=== PATIENT | male | born 1995 ===

== ENCOUNTER 2021-03-31 14:53 | Outpatient (CLI) | payer OTHER ==
--- NOTE | 2021-03-31 15:48 | SLEEP CARE CONSULTATION ---
Information from patient questionnaire entered by Cassia Mahajan. I have reviewed and concur with the information entered by Cassia Mahajan. This document represents the service I personally performed and the decisions made by me, Tamara Limon ARNP. History of Present Illness Service Date and Time: 03/31/2021 1453 Reason for Visit: New patient Chief Complaint: reports: Unrefreshed sleep, Snoring, Excessive daytime sleepiness, Observed pauses in breathing, Fatigue Date of Onset: 5 years Usual bedtime: Time it takes to fall asleep: 45 min/1 hr. Sometimes longer Snores at night: Yes Observed to quit breathing while asleep: Yes Sleeps alone due to snoring: No Number of times waking at night: Not sure Reasons for waking at night: reports: Snoring, Gasping for air Toss, Turn, or Twitch while sleeping: Yes Recalls having dreams: Yes (sometimes) Usually gets out of bed at: 0545/0600 Morning headache: Yes ([id number]; once a week, goes away in 1-2 hours) Sleepy or fatigued during the day: Yes Ever fallen asleep while driving: Yes (drowsy driving; has fallen asleep but no accident) Takes day naps: No Dreams during day naps: No Prior sleep studies: No Additional HPI information: I had the pleasure of seeing AUSTIN HUDSON today regarding the possibility of him having a sleep disorder. His current complaints are unrefreshed sleep, excessive daytime sleepiness, observed pauses in breathing, loud snoring and fatigue. He states he doesn't feel like he sleeps and wakes up tired. He snores loudly and his has slept in their guest room occasionally. She has told him that he will stop breathing and gasp in his sleep. He is tired of being tired all the time. He talks in his sleep and has acted out dreams occasionally. He has a grandmother with treated sleep apnea and he thinks his father has it but has never been tested. 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 Patient is and lives in [place]. Have you smoked in the past 12 months: No Alcohol use: Yes Alcohol amount and frequency: 1/2 drinks socially Caffeine use: Yes Caffeine amount and frequency: 1 cup coffee every day or 80 mg kombucha Family History Family history of sleep disordered breathing: Yes Family Hx Sleep Apnea: Father: Snoring, Sleep apnea - Untreated, Grandparent: Sleep apnea - Treated (grandmother) Allergies and Home Medications Drug allergies reviewed: Yes (penicillin) Home medication list reviewed: Yes Allergy and home medication list: Advil, prn Review of Systems Weight gain over past 5 years: 20 Weight loss over past 5 years: 14 Cardiovascular: denies: high blood pressure Gastrointestinal: reports: heartburn Neurological: reports: headaches Psychiatric: denies: anxiety, depression Ear/Nose/Throat: reports: wisdom teeth removed. denies: sinus problems, injury to nose, tonsillectomy Endocrine: reports: sluggishness (tired). denies: thyroid disease Musculoskeletal: reports: joint pain (stiffness) Immunologic: denies: allergies to food or environment Physical Exam Blood Pressure: 122/79 Cuff size: wrist Heart Rate: 82 O2 Saturation: 98 Height: 5 ft 10 in Weight: 256 lb Body Mass Index: 36.7 BMI Classification: Obese Neck circumference: 17.45 (inches) Mouth and throat: narrow oropharynx Soft palate: long Hard palate: normal Uvula: normal Uvula visualization: 50% Mallampati Class II Tongue: normal in size Tonsils: 1+ Neck: normal w/o lymphadenopathy or thyromegaly Heart: regular rate and rhythm Lungs: clear bilaterally Impression and Plan 1. Suspected Obstructive Sleep Apnea-Hypopnea Syndrome, as loud and irregular snoring, observed cessation of breath while asleep, gasping or choking in sleep, morning headache, unrefreshed sleep, cognitive impairment, and excessive daytime sleepiness. Narrow oropharynx and obesity are common predisposing factors for obstructive sleep apnea-hypopnea syndrome. I recommend proceeding to polysomnography to confirm the diagnosis and to assess severity. If the patient has significant sleep disordered breathing, a manual CPAP titration study will also be performed to find the optimal treatment pressure. I informed the patient of what the sleep studies involve and after some discussion, obtained agreement to proceed. The pathophysiology of obstructive sleep apnea-hypopnea syndrome was discussed with the patient and health risks of cardiovascular and cerebrovascular disease if not treated. [facility] brochure for obstructive sleep apnea-hypopnea syndrome given and reviewed. Risks of drowsy driving discussed in detail and patient advised to avoid long distance driving and to heat treat puller at the first sign of drowsiness. Patient agreed to plan. * Schedule polysomnography +- manual CPAP titration study and return in 1-2 weeks after the study to discuss result and initiate therapy. * Avoid long distance driving or driving when feeling sleepy. * Avoid alcohol, sedative and muscle relaxant around bedtime. * Attempt to lose weight. * Review instructions provided by trained office staff on how to prepare for the sleep study. * Return for follow-up after sleep study completed. Counseling Topics: Weight loss health impact Visit Type: In Office Time Spent with Patient (minutes): 32 Provider Statement: I spent 100% of the Face to Face Visit with the patient with greater than 50% spent counseling the patient and coordination of care.
[2021-03-31 15:49] VITALS: BP 122/79
== END 2021-03-31 14:54 | disposition home or self-care (01) ==
LOC: SC 14:53
PROVIDERS: ATTEND Nurse Practitioner Family
DX: R06.83 Snoring (principal); R06.81 Apnea, not elsewhere classified; G47.8 Other sleep disorders; R51.9 Headache, unspecified; R41.89 Other symptoms and signs involving cognitive functions and awareness; G47.10 Hypersomnia, unspecified; E66.9 Obesity, unspecified; Z68.36 Body mass index [BMI] 36.0-36.9, adult
CPT/HCPCS: 99203; 99212

== ENCOUNTER 2021-04-16 11:51 | Outpatient (CLI) | payer OTHER | END 2021-04-16 11:52 | disposition home or self-care (01) | LOC: SC 11:51 | PROVIDERS: ATTEND Nurse Practitioner Family | DX: G47.33 Obstructive sleep apnea (adult) (pediatric) (principal); R09.02 Hypoxemia | CPT/HCPCS: 95806 ==

== ENCOUNTER 2021-05-06 15:39 | Outpatient (CLI) | payer OTHER ==
[2021-05-06 16:17] VITALS: BP 116/86
--- NOTE | 2021-05-06 16:17 | SLEEP CARE CONSULTATION ---
Information from patient questionnaire entered by Irma Chao MA. I have reviewed and concur with the information entered by Irma Chao MA. This document represents the service I personally performed and the decisions made by , Tamara Limon ARNP. History of Present Illness Service Date and Time: 05/06/2021 1539 Initial [place] Sleepiness Scale score: 11 (in 2020) Current [place] Sleepiness Scale score: 17 (in 2020) Additional HPI information: AUSTIN HUDSON returns for follow up and results of the recently performed home sleep study. I explained the pathophysiology behind obstructive sleep apnea. We then spent quite a bit of time discussing different treatment options. For mild obstructive sleep apnea, surgery and oral appliance are alternatives to nasal CPAP therapy but in moderate or severe cases, nasal CPAP is the most effective and reliable treatment. Because apnea is primarily in supine position, then positional management therapy could be effective. Methods discussed such as positioning with pillows, using a T-shirt with tennis balls in the back, and shown commercial products that have a pillow format on back to prevent supine sleep. I reviewed the impact of weight changes on sleep apnea and strongly recommended losing weight. After some discussion, the patient opted to go with the nasal CPAP therapy. Nasal autoCPAP set at 4-15 cmH20 will be ordered with rationale explained. A manual titration study will be ordered if unable to find optimal pressure with office adjustments. I explained how CPAP machine works with sample devices Respironics Dreamstation and ResInfiKno [id number] and what to expect when using the machine. Using CPAP every night in order to get used to it was emphasized. Patient advised to put CPAP mask on before getting into bed so as not to fall asleep without CPAP. To assist acclimation to CPAP use, it could also be used for a short time during day while reading or watching TV. The patient was instructed to call the CPAP supplier to discuss any mechanical problem that may occur. If the mask given is uncomfortable or is difficult to keep on through the night even with adjustment, contact the CPAP supplier as many will replace with another mask style if no tified before 30 days. If snoring or perceives is not getting enough air or too much air from the machine, notify this office. AAS patient education PAP tips reviewed and given to patient. Patient counseled not drink alcohol less than 4 hours before bedtime as it can increase snoring and apnea. Patient was cautioned about risks of drowsy driving until sleepiness symptoms resolve. Sleep Study - Results Type of Sleep Study: Polysomnography Prior sleep studies: Yes Year and Where: 03/2021 Polysomnography/Home Sleep Study results: Physician Impression: The quality of the study is good. The length of the study is adequate (> 240 minutes). Please also see the tabulated and graphic data. 1. Obstructive Sleep Apnea-Hypopnea (ICD-10 G47.33), mild, with an AHI of 7.6/hr and malia SaO2 of 87%. During the study, the patient had 14 apneas (14 obstructive, 0 central, 0 mixed) and 41 hypopneas. The longest episode lasted 73.5 seconds. The patient only slept supine during this study (supine AHI was 7.6 and non-supine, 0.00). 2. Hypoxemia (ICD-10 R09.02), minimal, with the lowest oxygen saturation of 87 % and 2.0 minutes with SaO2 under 90%. Baseline oxygen saturation was normal (Average oxygen saturation was 94%). Allergies and Home Medications Home medication list reviewed: Yes (no changes) Review of Systems Review of systems same as previous: Yes (no changes) Physical Exam Vital signs obtained and entered by: Zhanna KELLER Blood Pressure: 116/86 (left) Cuff size: wrist Heart Rate: 74 O2 Saturation: 98 (with mask) Height: 5 ft 10 in Weight: 260 lb (with boots) Body Mass Index: 37.3 BMI Classification: Obese Impression and Plan 1. Obstructive Sleep Apnea-Hypopnea Syndrome, mild, with lowest oxygen saturation of 87%. Obviously this is the cause of the patients symptoms of unrefreshed sleep, and excessive daytime sleepiness. Positive pressure therapy could benefit benefit his overall health and reduce risks for cardiovascular and cerebrovascular adverse events. As mentioned above, the patient will be started on nasal autoCPAP therapy with pressure set at 4-15 cmH2O. A manual titration study will be completed if unable to find optimal treatment pressure with office adjustments. Compliance guidelines also reviewed. A copy of compliance guidelines will be given for reference at check out. Because the apnea is more severe supine, I instructed to avoid sleeping supine using pillow positioning un til able to start CPAP use. 2. Hypoxemia, minimal, with the lowest oxygen saturation of 87 % and 2.0 minutes with SaO2 under 90%. His baseline oxygen saturation was normal with an average oxygen saturation of 94%. * Nasal auto CPAP therapy, pressure at 4-15 cm H2O. * Attempt to lose weight. * Avoid alcohol consumption near bedtime. * Avoid supine sleep until using CPAP. * The patient is again cautioned about driving until sleepiness completely resolves. * Return one month after CPAP obtained. I will assess response to therapy and compliance at that time. Counseling Topics: Weight loss health impact Visit Type: In Office Time Spent with Patient (minutes): 20 Provider Statement: I spent 100% of the Face to Face Visit with the patient with greater than 50% spent counseling the patient and coordination of care.
== END 2021-05-06 15:40 | disposition home or self-care (01) ==
LOC: SC 15:39
PROVIDERS: ATTEND Nurse Practitioner Family
DX: G47.33 Obstructive sleep apnea (adult) (pediatric) (principal); E66.9 Obesity, unspecified; Z68.37 Body mass index [BMI] 37.0-37.9, adult
CPT/HCPCS: 99212; 99213

== ENCOUNTER 2021-08-03 10:17 | Outpatient (CLI) | payer OTHER ==
[2021-08-03 11:20] VITALS: BP 139/93
--- NOTE | 2021-08-03 11:20 | SLEEP CARE CONSULTATION ---
Information from patient questionnaire entered by Irma Chao MA. I have reviewed and concur with the information entered by Irma Chao MA. This document represents the service I personally performed and the decisions made by , Tamara Limon ARNP. 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 Sleep Study - Results Type of Sleep Study: Polysomnography Prior sleep studies: Yes Year and Where: 03/2021 CPAP Compliance Data - Data Reviewed with Patient Average duration of nightly device use: 3 hours 10 minutes Compliance rate %: 23 Current pressure setting (cmH2O): 4-16 (median 5.5, avg 8.0, max 9.3) Average residual AHI: 0.4 Central apnea: 0.0 Obstructive apnea: 0.2 Subjective Missed days of use due to: reports: illness Patient concerns: reports: mask discomfort, nasal congestion, dry mouth, nose, throat, other ([place]). denies: aerophagia, air blowing in eyes, mask leak noise, condensation in mask/hose, epistaxis Observed to snore while using device: No Current pressure setting perceived as: comfortable On therapy, patient: reports: sleeping better, awakening more refreshed, being more awake and alert during the day, more rested overall. denies: drowsiness while driving Initial [place] Sleepiness Scale score: 11 (in 2020) Current [place] Sleepiness Scale score: 14 (2021) Allergies and Home Medications Known drug allergies: Yes ([facility], ) Drug allergies reviewed: Yes Home medication list reviewed: Yes Physical Exam Vital signs obtained and entered by: Hilario CHAO CMA [place] Blood Pressure: 139/93 (RIGHT, 80 PULSE) Cuff size: wrist Heart Rate: 81 O2 Saturation: 97 (WITH PAPER MASK) Height: 5 ft 10 in Weight: 260 lb (UNIFORM AND BOOTS) Body Mass Index: 37.3 BMI Classification: Obese Impression and Plan 1. Obstructive Sleep Apnea-Hypopnea Syndrome, mild, with poor treatment compliance and excellent apnea control. On CPAP therapy, the patient has better sleep quality and is more rested overall. He states he will take the mask off while asleep. He wants to wear the mask because he notices the difference in how he feels when he uses the CPAP. He is using a full face mask that goes over the nose and mouth. He states that he thinks he needs a bigger mask because the mask will put pressure on his nose and he feels he cannot breathe through his nose at all. He thinks he may sleep with his mouth open causing some oral dryness and that is why he went with the full face mask. I think he may benefit from switching to a Nate Skimblwear full face mask and had him fitted in the office by the mechanical design technician (Mikey). He felt it was comfortable and he hopes it will help him leave the mask on his face. Patient has been having some problems with being able to get more supplies. 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 He was also told he should get a battery pack for this deployment. I will write for the battery pack and 6 months of supplies for the deployment and have my discharge tobacco checkout clerk fax to his DME to help him get the supplies he needs. I am also adjust his pressure to reflect the pressures the patient is using. He was encouraged to replace mask on his face when he finds it off and to use CPAP with any naps. He voiced understanding. Patient's apnea severity and rationale for treatment to reduce apnea, improve sleep quality and reduce cardiovascular and cerebrovascular events was reviewed. Patient was encouraged to lose weight for their overall health and to reduce apneas. * Patient given full face Dreamwear mask to try for patient comfort * Change auto CPAP pressure to 5-8 cmH2O * Battery backup for deployment * 6 month supply of masks for deployment * Notify me if snoring with mask or feeling that the pressure is too much or too little * Attempt to lose weight * Call this office if any problems using CPAP * Return for follow up in 1-2 months, or sooner if concerns arise Mask provided: Yes Counseling Topics: Spare mask, Weight loss health impact Visit Type: In Office Time Spent with Patient (minutes): 23 Provider Statement: I spent 100% of the Face to Face Visit with the patient with greater than 50% spent counseling the patient and coordination of care.
== END 2021-08-03 10:18 | disposition home or self-care (01) ==
LOC: SC 10:17
PROVIDERS: ATTEND Nurse Practitioner Family
DX: G47.33 Obstructive sleep apnea (adult) (pediatric) (principal); E66.9 Obesity, unspecified; Z68.37 Body mass index [BMI] 37.0-37.9, adult
CPT/HCPCS: 99212; 99213

== ENCOUNTER 2021-09-14 14:26 | Outpatient (CLI) | payer OTHER ==
--- NOTE | 2021-09-14 15:04 | SLEEP CARE CONSULTATION ---
Information from patient questionnaire entered by Irma Chao MA. I have reviewed and concur with the information entered by Irma Chao MA. This document represents the service I personally performed and the decisions made by , Tamara Limon ARNP. History of Present Illness Service Date and Time: 09/14/2021 1426 Previous diagnosis: Mild, Obstructive Sleep Apnea-Hypopnea Syndrome AHI: 7.6 Reason for follow up: one month Equipment type: CPAP Equipment obtained from: Other ([facility], getting supplies as needed) Mask style: Full face Mask brand: Resmed Backup mask available: Yes (old mask) Last cushion change: 1 month Prior sleep studies: Yes Year and Where: 03/2021 Type of Sleep Study: Polysomnography HPI additional information: AUSTIN HUDSON was diagnosed to have mild, AHI 7.6, obstructive sleep apnea- hypopnea syndrome and returned today for CPAP therapy one month follow-up. Sleep Study - Results Type of Sleep Study: Polysomnography Prior sleep studies: Yes Year and Where: 03/2021 CPAP Compliance Data - Data Reviewed with Patient Average duration of nightly device use: 5 HOURS 59 MINUTES Compliance rate %: 80 Current pressure setting (cmH2O): 5-8 Average residual AHI: 0.3 Central apnea: .0 Obstructive apnea: .1 Average large leak: 11.2 Subjective Patient concerns: denies: aerophagia, mask discomfort, air blowing in eyes, mask leak noise, condensation in mask/hose, nasal congestion, dry mouth, nose, throat, epistaxis Observed to snore while using device: No Current pressure setting perceived as: comfortable On therapy, patient: reports: sleeping better, awakening more refreshed, being more awake and alert during the day, more rested overall. denies: drowsiness while driving Initial [place] Sleepiness Scale score: 11 (in 2020) Current [place] Sleepiness Scale score: 14 (08/2021) Allergies and Home Medications Known drug allergies: Yes (PN) Drug allergies reviewed: Yes Home medication list reviewed: Yes (no changes) Review of Systems Review of systems same as previous: Yes (no changes) Physical Exam Vital signs obtained and entered by: LULY BRIGGS Blood Pressure: 122/71 (RIGH , PULSE 78, RESP 16, ) Cuff size: wrist Heart Rate: 76 O2 Saturation: 96 (PAPER) Height: 5 ft 10 in Weight: 266 lb Weight change since last visit: 6 lb gain Body Mass Index: 38.1 BMI Classification: Obese Impression and Plan 1. Obstructive Sleep Apnea-Hypopnea Syndrome, mild, with good treatment compliance and excellent apnea control. On CPAP therapy, the patient has better sleep quality and is more rested overall. He has been able to be more comfortable using his CPAP with a change to the full face hybrid mask his nose and over his mouth. He has no issues with dry mouth, mask discomfort, skin irritation, nasal congestion or epistaxis. He is going on appointment for 6 months. I will have him call to set up an appointment when he gets back into the area. Patient's apnea severity and rationale for treatment to reduce apnea, improve sleep quality and reduce cardiovascular and cerebrovascular events was reviewed. 2. Obesity, unspecified. Patient has gained weight. Currently patients BMI is 38.1. Obesity increases the risk of apnea, CPAP pressure requirements and overall health risks especially cardiovascular and diabetes. Thus patient is advised to lose weight. Weight loss can be done with reducing portion size, reducing refined foods and balancing content with vegetables, fruit and whole grain foods. In addition, patient encouraged to get regular exercise. * Continue auto CPAP pressure at 5-8 cmH2O * Notify me if snoring with mask or feeling that the pressure is too much or too little * Attempt to lose weight * Call this office if any problems using CPAP * Return for follow up in 6 months, or sooner if concerns arise Counseling Topics: Spare mask, Weight loss health impact Visit Type: In Office Time Spent with Patient (minutes): 21 Provider Statement: I spent 100% of the Face to Face Visit with the patient with greater than 50% spent counseling the patient and coordination of care.
[2021-09-14 15:05] VITALS: BP 122/71
== END 2021-09-14 14:27 | disposition home or self-care (01) ==
LOC: SC 14:26
PROVIDERS: ATTEND Nurse Practitioner Family
DX: G47.33 Obstructive sleep apnea (adult) (pediatric) (principal); E66.9 Obesity, unspecified; Z68.38 Body mass index [BMI] 38.0-38.9, adult
CPT/HCPCS: 99212; 99213

== ENCOUNTER 2022-06-17 07:59 | Outpatient (CLI) | payer OTHER ==
--- NOTE | 2022-06-17 08:59 | MRI Report ---
PROCEDURE: CERVICAL SPINE WO INDICATIONS: PARESTHESIA TECHNIQUE: Noncontrast sagittal T1 spin echo and T2 fast spin echo, sagittal STIR, foraminal oblique sagittal T2 fast spin echo, and axial gradient echo or T2 fast spin echo through the cervical spine. COMPARISON: None. FINDINGS: Image quality: Excellent. Alignment and Curvature: There is loss of normal cervical lordosis and otherwise normal bony alignme nt. Bone Marrow: Marrow demonstrates normal overall signal. Spinal Cord: Visualized spinal cord has normal size and signal. No cerebellar tonsillar herniation. Paraspinous Soft Tissues: No paravertebral masses. Prevertebral soft tissues are normal in thicknes s. C2-C3: Normal in appearance. C3-C4: Mild facet and uncovertebral hypertrophy bilaterally. Congenital canal stenosis. Mild canal stenosis. Mild bilateral foraminal stenosis. C4-C5: Congenital canal stenosis. Overall moderate canal stenosis. No foraminal stenosis. C5-C6: Congenital canal stenosis. Mild disc desiccation. Minimal diffuse disc bulge. Moderate canal stenosis. No foraminal stenosis. C6-C7: Congenital canal stenosis. Moderate canal stenosis. No foraminal stenosis. C7-T1: Congenital canal stenosis. Mild canal stenosis. No foraminal stenosis. IMPRESSION: 1. 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 2. Multilevel canal stenoses, worst at C4-C5, C5-C6, and C6-C7, where there are moderate canal stenos es. 3. Mild C3-C4 foraminal stenoses bilaterally. Reviewed by: Gertrudis Feldman MD on 06/17/2022 8:58 AM PST Approved by: Gertrudis Feldman MD on 06/17/2022 8:58 AM PST Station ID: [id number]
== END 2022-06-17 08:00 | disposition home or self-care (01) ==
LOC: DI 07:59
DX: M50.322 Other cervical disc degeneration at C5-C6 level (principal); M47.812 Spondylosis without myelopathy or radiculopathy, cervical region; M48.02 Spinal stenosis, cervical region

== ENCOUNTER 2022-07-22 14:56 | Outpatient (CLI) | payer OTHER ==
[2022-07-22 15:59] VITALS: BP 128/80
--- NOTE | 2022-07-22 15:59 | SLEEP CARE CONSULTATION ---
Information from patient questionnaire entered by Kalpana Abreu. I have reviewed and concur with the information entered by Kalpana Abreu. This document represents the service I personally performed and the decisions made by me, Tamara Limon ARNP. History of Present Illness Service Date and Time: 07/22/2022 1456 Previous diagnosis: Mild, Obstructive Sleep Apnea-Hypopnea Syndrome AHI: 7.6 (in 2020) Reason for follow up: other (TEN MONTH F/U; needs supplies) Equipment type: CPAP (RESMED Airsense 11, s/u 06/2021) Equipment obtained from: Other ([facility], getting supplies as needed) Mask style: Full face Mask brand: Respironics ([employer]) Backup mask available: Yes (old mask) Last cushion change: 2 months Prior sleep studies: Yes Year and Where: 03/2021 Type of Sleep Study: Polysomnography HPI additional information: AUSTIN HUDSON was diagnosed to have mild, AHI 7.6, obstructive sleep apnea- hypopnea syndrome and returned today for CPAP therapy ten month follow-up. Sleep Study - Results Type of Sleep Study: Polysomnography Prior sleep studies: Yes Year and Where: 03/2021 CPAP Compliance Data - Data Reviewed with Patient Average duration of nightly device use: 4 hours 21 minutes Compliance rate %: 32 (106/180 days) Current pressure setting (cmH2O): 5-8 Average residual AHI: 0.3 Central apnea: 0.0 Obstructive apnea: 0.1 Subjective Missed days of use due to: reports: illness, travel [place], [place] clogging filters) Patient concerns: reports: aerophagia (only when fiting a cold), condensation in mask/hose, dry mouth, nose, throat, other (does machine need to be serviced?). denies: mask discomfort, air blowing in eyes, mask leak noise, nasal congestion, epistaxis Observed to snore while using device: No Current pressure setting perceived as: comfortable On therapy, patient: reports: sleeping better, awakening more refreshed, being more awake and alert during the day, more rested overall. denies: drowsiness while driving Initial [place] Sleepiness Scale score: 11 (in 2020) Current [place] Sleepiness Scale score: 7 (07/22/22) Allergies and Home Medications Drug allergies reviewed: Yes (penicillin) Home medication list reviewed: Yes (no changes) Review of Systems Review of systems same as previous: Yes (no changes) Physical Exam Vital signs obtained and entered by: KALPANA Baxter MA Blood Pressure: 128/80 (LEFT ARM) Cuff size: regular Heart Rate: 75 O2 Saturation: 96 Height: 5 ft 10 in Weight: 280 lb Body Mass Index: 40.1 BMI Classification: Morbidly Obese Impression and Plan 1. Obstructive Sleep Apnea-Hypopnea Syndrome, mild, with fair treatment compliance and good apnea control. On CPAP therapy, the patient has better sleep quality and is more rested overall. [place] He states his filters on his machine was getting clogged with a lot of dirt. He was concerned about this and stopped using his CPAP because he did not want to damage his machine. He is still concerned that it may have to be serviced to make sure it is working properly. I will have it serviced as it is still it still should be under warrantee. Patient's apnea severity and rationale for treatment to reduce apnea, improve sleep quality and reduce cardiovascular and cerebrovascular events was reviewed. Patient states he will be moving in January this year and we discussed how he is to set up with a new sleep provider once he moves. He voiced understanding. 2. Obesity, unspecified. Currently patients BMI is 40.1. Obesity increases the risk of apnea, CPAP pressure requirements and overall health risks especially cardiovascular and diabetes. Thus patient is advised to lose weight. * Continue auto CPAP pressure at 5-8 cmH2O * Service machine * Notify me if snoring with mask or feeling that the pressure is too much or too little * Attempt to lose weight * Call this office if any problems using CPAP * Return for follow up in 1 year, or sooner if concerns arise Counseling Topics: Spare mask, Weight loss health impact Visit Type: In Office Time Spent with Patient (minutes): 22 Provider Statement: I spent 100% of the Face to Face Visit with the patient with greater than 50% spent counseling the patient and coordination of care.
== END 2022-07-22 14:57 | disposition home or self-care (01) ==
LOC: SC 14:56
PROVIDERS: ATTEND Nurse Practitioner Family
DX: G47.33 Obstructive sleep apnea (adult) (pediatric) (principal); E66.01 Morbid (severe) obesity due to excess calories; Z68.41 Body mass index [BMI] 40.0-44.9, adult
CPT/HCPCS: 99212; 99213